=== PATIENT | female | born 1990 | race Caucasian/White ===

== ENCOUNTER 2020-09-18 09:23 | Emergency (ER) | payer SELFPAY ==
--- NOTE | 2020-09-18 10:55 | EDPHYS ---
Physician Documentation [facility] Name: Lesli Bonds Age: 29 yrs Sex: Female : 1990 Arrival Date: 09/18/2020 Time: 09:26 Bed 12 Private MD: ED Physician Martín Smith HPI: 09/18 10:49 This 29 yrs old Female presents to ER via Ambulatory with complaints of loki Needle Stick Exposure. 10:49 The patient presents with pain. The complaints affect the right foot, right fifth toe. loki 10:49 Context: The problem was sustained. Onset: The symptoms/episode began/occurred 3 day(s) loki ago. Modifying factors: The symptoms are alleviated by nothing. Associated signs and symptoms: The patient has no apparent associated signs or symptoms. Severity of symptoms: At their worst the symptoms were very mild, in the emergency department the symptoms are unchanged. The patient has not experienced similar symptoms in the past. Historical: - Allergies: 09:42 No Known Allergies; hb - PMHx: 09:42 Brain Tumor; PCOS; hb - PSHx: 09:42 Brain Stent; hb - Immunization history:: Adult Immunizations up to date. - Social history:: Smoking status: Patient denies any tobacco usage or history of. - Family history:: not pertinent. ROS: 10:49 Constitutional: Negative for fever, chills, and weight loss, Eyes: Negative for injury, loki pain, redness, and discharge, ENT: Negative for injury, pain, and discharge, Neck: Negative for injury, pain, and swelling, Cardiovascular: Negative for chest pain, palpitations, and edema, Respiratory: Negative for shortness of breath, cough, wheezing, and pleuritic chest pain, Abdomen/GI: Negative for abdominal pain, nausea, vomiting, diarrhea, and constipation, Back: Negative for injury and pain, MS/Extremity: Negative for injury and deformity, Skin: Negative for injury, rash, and discoloration, Neuro: Negative for headache, weakness, numbness, tingling, and seizure, Psych: Negative for depression, anxiety, suicide ideation, homicidal ideation, and hallucinations, Allergy/Immunology: Negative for hives, rash, and allergies, Endocrine: Negative for neck swelling, polydipsia, polyuria, polyphagia, and marked weight changes, Hematologic/Lymphatic: Negative for swollen nodes, abnormal bleeding, and unusual bruising. Exam: 10:49 Constitutional: This is a well developed, well nourished patient who is awake, alert, loki and in no acute distress. Head/Face: Normocephalic, atraumatic. Eyes: Pupils equal round and reactive to light, extra-ocular motions intact. Lids and lashes normal. Conjunctiva and sclera are non-icteric and not injected. Cornea within normal limits. Periorbital areas with no swelling, redness, or edema. ENT: Nares patent. No nasal discharge, no septal abnormalities noted. Tympanic membranes are normal and external auditory canals are clear. Oropharynx with no redness, swelling, or masses, exudates, or evidence of obstruction, uvula midline. Mucous membranes moist. Neck: Trachea midline, no thyromegaly or masses palpated, and no cervical lymphadenopathy. Supple, full range of motion without nuchal rigidity, or vertebral point tenderness. No Meningismus. Chest/axilla: Normal chest wall appearance and motion. Nontender with no deformity. No lesions are appreciated. Cardiovascular: Regular rate and rhythm with a normal S1 and S2. No gallops, murmurs, or rubs. Normal PMI, no JVD. No pulse deficits. Respiratory: Lungs have equal breath sounds bilaterally, clear to auscultation and percussion. No rales, rhonchi or wheezes noted. No increased work of breathing, no retractions or nasal flaring. Abdomen/GI: Soft, non-tender, with normal bowel sounds. No distension or tympany. No guarding or rebound. No evidence of tenderness throughout. Back: No spinal tenderness. No costovertebral tenderness. Full range of motion. Skin: Warm, dry with normal turgor. Normal color with no rashes, no lesions, and no evidence of cellulitis. MS/ Extremity: Pulses equal, no cyanosis. Neurovascular intact. Full, normal range of motion. Neuro: Awake and alert, GCS 15, oriented to person, place, time, and situation. Cranial nerves II-XII grossly intact. Motor strength 5/5 in all extremities. Sensory grossly intact. Cerebellar exam normal. Normal gait. Psych: Awake, alert, with orientation to person, place and time. Behavior, mood, and affect are within normal limits. Vital Signs: 09:40 BP 136 / 88; Pulse 90; Resp 16; Temp 97.1; Pulse Ox 100% on R/A; Pain 0/10; hb MDM: 10:34 Patient medically screened. [facility] 10:51 Differential diagnosis: NEEDLE STICK. Data reviewed: vital signs, nurses notes, lab [facility] test result(s), CBC, electrolytes, hepatic panel. Data interpreted: manager monitoring: rate is 90 beats/min, rhythm is regular, Pulse oximetry: is not applicable for this patient encounter. Counseling: I had a detailed discussion with the patient and/or guardian regarding: the historical points, exam findings, and any diagnostic results supporting the discharge/admit diagnosis, lab results, the need for outpatient follow up, for definitive care, a family practitioner, an infectious disease specialist. 09/18 10:47 Order name: Hepatitis Panel [facility] 09/18 10:47 Order name: CBC with Diff; Complete Time: 11:46 [facility] 09/18 10:47 Order name: Comprehensive Metabolic Panel; Complete Time: 11:46 [facility] 09/18 10:47 Order name: Test, Serum [facility] 09/18 10:47 Order name: Hepatitis Panel,Acute [facility] 09/18 11:26 Order name: HIV AG/AB SCREEN [facility] 09/18 11:47 Order name: Urine Dipstick--Ancillary (enter results) [facility] 09/18 11:47 Order name: Urine --Ancillary (enter results) [facility] 09/18 11:47 Order name: Urine Dipstick-Ancillary [facility] 09/18 11:47 Order name: Urine --Ancillary [facility] 09/18 10:47 Order name: Urine Dipstick-Ancillary (obtain specimen); Complete Time: 11:42 [facility] Administered Medications: 11:16 Drug: Tetanus-Diphtheria Toxoid Adult 0.5 ml {Kennel Aide: Democ[employer]. Exp: 11/15/2021. Lot #: [id number]. } Route: IM; Site: right deltoid; 11:30 Follow up: Response: No adverse reaction tw2 11:49 Drug: valACYclovir 1000 mg Route: PO; tw2 11:55 Follow up: Response: No adverse reaction tw2 11:49 Drug: Emtricitabine-Tenofovir 1 tabs Route: PO; tw2 12:02 Follow up: Response: No adverse reaction tw2 Disposition: 09/18/20 10:54 Discharged to Home. Impression: Puncture wound without foreign body, right foot - NEEDLE STICK, RIGHT 5TH TOE. - Condition is Stable. - Discharge Instructions: Puncture Wound, Puncture Wound, [id number]. - Prescriptions for Isentress 400 mg Oral tablet - take 1 tablet by ORAL route 2 times per day; 56 tablet. Truvada 200- 300 mg Oral tablet - take 1 tablet by ORAL route once daily; 27 tablet. Valtrex 1 g Oral Tablet - take 1 tablet by ORAL route every 8 hours for 7 days; 21 tablet. Zofran 4 mg Oral Tablet - take 1 tablet by ORAL route every 12 hours As needed; 20 tablet. Zovirax 5 % Topical Cream - apply 1 application by TOPICAL route 5 times per day; 3 gram. - Medication Reconciliation Form, Thank You Letter, Antibiotic Education, Prescription Opioid Use form. - Follow up: Martín Smith MD; When: 2 - 3 days; Reason: Recheck today's complaints, Continuance of care, Re-evaluation by your physician. - Problem is new. - Symptoms have improved. Signatures: Dispatcher [employer] [facility] Martín Smith MD MD cha Baxter, Heather, RN RN Carole Mercado RN RN tw2 Corrections: (The following items were deleted from the chart) 11:26 10:47 Miscellaneous Lab Test+[id number].LAB.BRZ ordered. [facility] 11:51 10:54 09/18/2020 10:54 Discharged to Home. Impression: Puncture wound without foreign tw2 body, right foot - NEEDLE STICK, RIGHT 5TH TOE. Condition is Stable. Forms are Medication Reconciliation Form, Thank You Letter, Antibiotic Education, Prescription Opioid Use. Follow up: Dr. Martín Smith; When: 2 - 3 days; Reason: Recheck today's complaints, Continuance of care, Re-evaluation by your physician. Problem is new. Symptoms have improved. loki
--- NOTE | 2020-09-18 10:55 | ER ---
Nurse's Notes [facility] Name: Lesli Bonds Age: 29 yrs Sex: Female : 1990 Arrival Date: 09/18/2020 Time: : Bed 12 Private MD: Diagnosis: Puncture wound without foreign body, right foot-NEEDLE STICK, RIGHT 5TH TOE Presentation: 09/18 09:40 Chief complaint: Needlestick to right foot from needle in motel bed 2 days ago. Also hb requesting medication for HSV outbreak. Coronavirus screen: At this time, the client does not indicate any symptoms associated with coronavirus-19. Ebola Screen: No symptoms or risks identified at this time. Initial Sepsis Screen: Does the patient meet any 2 criteria? No. Patient's initial sepsis screen is negative. Does the patient have a suspected source of infection? No. Patient's initial sepsis screen is negative. Risk Assessment: Do you want to hurt yourself or someone else? Patient reports no desire to harm self or others. Onset of symptoms was September 18, 2020. 09:40 Method Of Arrival: Ambulatory hb 09:40 Acuity: SHADIA 4 hb Historical: - Allergies: 09:42 No Known Allergies; hb - PMHx: 09:42 Brain Tumor; PCOS; hb - PSHx: 09:42 Brain Stent; hb - Immunization history:: Adult Immunizations up to date. - Social history:: Smoking status: Patient denies any tobacco usage or history of. - Family history:: not pertinent. Screenin:20 Abuse screen: Denies threats or abuse. Nutritional screening: No deficits noted. tw2 Tuberculosis screening: No symptoms or risk factors identified. Fall Risk None identified. Assessment: 11:50 Reassessment: Patient appears in no apparent distress at this time. No changes from tw2 previously documented assessment. Patient and/or family updated on plan of care and expected duration. Pain level reassessed. Patient is alert, oriented x 3, equal unlabored respirations, skin warm/dry/pink. Vital Signs: 09:40 BP 136 / 88; Pulse 90; Resp 16; Temp 97.1; Pulse Ox 100% on R/A; Pain 0/10; hb ED Course: : Patient arrived in ED. ds1 09:41 Triage completed. hb 09:42 Arm band placed on. hb 10:32 Call light in reach. tw2 10:33 Martín Smith MD is Attending Physician. [facility] 10:34 Carole Mercado, RN is Primary Nurse. tw2 10:52 Martín Smith MD is Referral Physician. [facility] 11:20 Awaiting: medication from pharmacy at this time. tw2 11:50 No provider procedures requiring assistance completed. Patient did not have IV access tw2 during this emergency room visit. Administered Medications: 11:16 Drug: Tetanus-Diphtheria Toxoid Adult 0.5 ml {Manager Of Tax: [employer]. Exp: tw2 11/15/2021. Lot #: [id number]. } Route: IM; Site: right deltoid; 11:30 Follow up: Response: No adverse reaction tw2 11:49 Drug: valACYclovir 1000 mg Route: PO; tw2 11:55 Follow up: Response: No adverse reaction tw2 11:49 Drug: Emtricitabine-Tenofovir 1 tabs Route: PO; tw2 12:02 Follow up: Response: No adverse reaction tw2 Outcome: 10:54 Discharge ordered by . [facility] 11:50 Discharged to home ambulatory. tw2 11:50 Condition: stable 11:50 Discharge instructions given to patient, Instructed on discharge instructions, follow up and referral plans. no drinking with medication, no driving heavy equipment, medication usage, safe sex practices, safety practices, Demonstrated understanding of instructions, follow-up care, medications, Prescriptions given X 5 11:51 Patient left the ED. tw2 Signatures: Martín Smith MD MD cha Sanford, Demi ds1 Deanna White RN RN Carole Mercado RN RN tw2
[2020-09-18] MEDS ORDERED: VALACYCLOVIR 500 MG TAB PO ONE (11:00)
[2020-09-18] MEDS ORDERED: EMTRICITABINE/TENOFOVIR 1 TAB PO ONE (11:00)
[2020-09-18] MEDS ORDERED: TETANUS & DIPHTHERIA TOX,ADULT 0.5 ML VIAL ONE (11:06)
[2020-09-18 11:33] LABS: Basophils % 0.5 % (0-1.3); Hematocrit 43.9 % (36.0-45.0); Lymphocytes % 29.2 % (15.3-44.8); MPV 9.2 fL (7.6-11.3); RBC Red Blood Cell Count 4.89 M/uL (3.86-4.86)
[2020-09-18 11:38] LABS: ALT/SGPT 11 U/L (12-78); AST/SGOT 14 U/L (15-37); Albumin 4.1 g/dL (3.4-5.0); Alkaline Phosphatase 66 U/L (45-117); BUN Blood Urea Nitrogen 8 mg/dL (7-18); Bicarbonate 25 mmol/L (21-32); Bilirubin Total 0.3 mg/dL (0.2-1.0); Glucose Level 97 mg/dL (74-106); Potassium 3.7 mmol/L (3.5-5.1); Protein, Total 7.6 g/dL (6.4-8.2); Sodium Level 140 mmol/L (136-145)
[2020-09-18 12:00] VITALS: BP 136/88; TEMP 97.1; O2SAT 100
[2020-09-18 12:12] LABS: Urine Blood NEGATIVE (NEG); Urine Glucose NEGATIVE (NEG); Urine Protein NEGATIVE (NEG); Urine Specific Gravity 1.025 (1.005-1.030); Urine pH 5.5 (5.0-7.0)
[2020-09-20 13:04] LABS: HIV AG/AB 4TH GEN Non-reactive (Non-reactive)
[2020-09-25 13:26] LABS: HBsAG Nonreactive (Nonreactive)
== END 2020-09-18 11:51 | disposition home or self-care (01) ==
LOC: ER 09:23
DX: S91.331A Puncture wound without foreign body, right foot, initial encounter (principal); W46.1XXA Contact with contaminated hypodermic needle, initial encounter; Y93.89 Activity, other specified; Y92.59 Other trade areas as the place of occurrence of the external cause; Z23 Encounter for immunization
CPT/HCPCS: 36415; 80053; 80074; 81003; 81025; 84703; 85025; 87389; 90471; 90714; 99283; J3490